=== PATIENT | male | born 1980 | race Caucasian/White ===

== ENCOUNTER 2017-06-24 22:43 | Emergency (ER) | payer SELFPAY ==
[~2017-06-24] VITALS: Ht 190.5 cm; Wt 84.4 kg
[2017-06-24] MEDS ORDERED: MULTIVITAMINS1 EAC2 ORAL (22:54)
[2017-06-24 22:59] VITALS: BP 108/68
[2017-06-24] MEDS ORDERED: Dicyclomine HCl 10mg/5ml oral soln ORAL ONE (23:30)
[2017-06-24 23:57] LABS: APPEARANCE,URINE CLEAR; KETONES,URINE NEGATIVE (NEGATIVE); NITRITE,URINE NEGATIVE (NEGATIVE); PH,URINE 6 (4.5-8.0); PROTEIN,URINE NEGATIVE (NEGATIVE); UROBILINOGEN,URINE NORMAL MG/DL (0.0-1.0)
[2017-06-24 23:59] LABS: LEUKOCYTE ESTERASE ,URINE NEGATIVE (NEGATIVE)
[2017-06-25 00:03] LABS: BASOPHILS % (AUTO) 1.3 % (0.0-2.0); EOSINOPHILS % (AUTO) 1.5 % (0.0-3.0); LYMPHOCYTES % (AUTO) 28.5 % (20.0-45.0); MEAN CORPUSCULAR HEMOGLOBIN 29.9 PG (27.0-31.0); MEAN CORPUSCULAR HGB CONC 33.9 G/DL (32.0-36.0); MEAN CORPUSCULAR VOLUME 88 FL (80-99); MEAN PLATELET VOLUME 7.2 FL (6.5-10.1); MONOCYTES % (AUTO) 6.2 % (1.0-10.0); NEUTROPHILS % (AUTO) 62.6 % (45.0-75.0); PLATELET COUNT 119 K/UL (150-450); RED BLOOD COUNT 5.13 M/UL (4.70-6.10); WHITE BLOOD COUNT 7.3 K/UL (4.8-10.8)
[2017-06-25 00:26] LABS: ALANINE AMINOTRANSFERASE 15 U/L (3-41); ALBUMIN/GLOBULIN RATIO 1.4 (1.0-2.7); ANION GAP 13 (5-15); ASPARTATE AMINO TRANSFERASE 26 U/L (5-40); CALCIUM 9.3 mg/dL (8.6-10.2); CARBON DIOXIDE 23 mEQ/L (20-30); CHLORIDE 103 mEQ/L (98-107); GLOMERULAR FILTRATION RATE > 60 mL/min (>60); HEMOLYSIS 15; LIPASE 38 U/L (< 60); POTASSIUM 3.8 mEQ/L (3.4-4.9); SODIUM 139 mEQ/L (135-145)
[2017-06-25 01:21] VITALS: BP 100/60
--- NOTE | 2017-06-25 01:34 | Emergency Room Report ---
History of Present Illness General Chief Complaint: Abdominal Pain Source: Patient Present Illness HPI The patient said one to 2 weeks of abdominal bloating with intermittent loose stools. He's had some incontinence. He has had a history of hemorrhoids in the past. It is itching around his rectum. The pain is different from constipation. Pain 7/10, constant, more pressure. Increased flatus. States has to clean rectal area multiple times. Had diarrhea which supposedly cleared up but still with "accidents". No change in weight. Appetite poor with how he feels. Denies rectal trauma. No fevers, vomiting, dysuria, chest pain, URI sy, cough, joint pain. Aside from coming to [place] from [place], no travel, unusual foods, sick contacts, recent antibiotics. 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 [place] Reviewed Nursing Documentation: PMH: Agreed, PSxH: Agreed Nursing Documentation-PMH Past Medical History: No Stated History Review of Systems All Other Systems: negative except mentioned in HPI Physical Exam Vital Signs Date Time Temp Pulse Resp B/P Pulse Ox O2 Delivery O2 Flow Rate FiO2 06/24/17 22:51 98.1 77 18 108/68 97 Room Air Sp02 EP Interpretation: reviewed, normal General Appearance: well appearing, no apparent distress, GCS 15 Head: normocephalic Eyes: bilateral eye PERRL, bilateral eye normal inspection ENT: moist mucus membranes Neck: supple Respiratory: lungs clear, normal breath sounds Cardiovascular #1: regular rate, rhythm Cardiovascular #2: 2+ radial (R) Gastrointestinal: normal inspection, normal bowel sounds, no mass, non- distended - though he feels distended, no guarding, no rebound, tenderness - diffuse, other - no LUQ tenderness Rectal: normal exam Musculoskeletal: back normal, gait/station normal, normal range of motion Neurologic: alert, oriented x3, grossly normal Skin: normal inspection, warm/dry Medical Decision Making Diagnostic Impression: Primary Impression: Abdominal pain Qualified Codes: R10.84 - Generalized abdominal pain ER Course Patient presents with bloating, discomfort and loose stools. Ddx: GItis, C dificile, hemorrhoids, IBS, polyps, proctitis amongst others. Exam not lead to diagnosis. Evaluation with labs and xray. Treatment with tylenol, pepcid and bentyl. Labs unremarkable. Xray with increased stool load. States still with discomfort (unchanged). Lomotil given. Discussed need to see GI specialist. Patient stable for outpatient observation and treatment. Laboratory Tests Test 06/24/17 23:45 White Blood Count 7.3 K/UL (4.8-10.8) Red Blood Count 5.13 M/UL (4.70-6.10) Hemoglobin 15.4 G/DL (14.2-18.0) Hematocrit 45.3 % (42.0-52.0) Mean Corpuscular Volume 88 FL (80-99) Mean Corpuscular Hemoglobin 29.9 PG (27.0-31.0) Mean Corpuscular Hemoglobin Concent 33.9 G/DL (32.0-36.0) Red Cell Distribution Width 13.0 % (11.6-14.8) Platelet Count 119 K/UL (150-450) L Mean Platelet Volume 7.2 FL (6.5-10.1) Neutrophils (%) (Auto) 62.6 % (45.0-75.0) Lymphocytes (%) (Auto) 28.5 % (20.0-45.0) Monocytes (%) (Auto) 6.2 % (1.0-10.0) Eosinophils (%) (Auto) 1.5 % (0.0-3.0) Basophils (%) (Auto) 1.3 % (0.0-2.0) Urine Color Yellow Urine Appearance Clear Urine pH 6 (4.5-8.0) Urine Specific [place] 1.015 (1.005-1.035) Urine Protein Negative (NEGATIVE) Urine Glucose (UA) Negative (NEGATIVE) Urine Ketones Negative (NEGATIVE) Urine Occult Blood Negative (NEGATIVE) Urine Nitrite Negative (NEGATIVE) Urine Bilirubin Negative (NEGATIVE) Urine Urobilinogen Normal MG/DL (0.0-1.0) Urine Leukocyte Esterase Negative (NEGATIVE) Sodium Level 139 mEQ/L (135-145) Potassium Level 3.8 mEQ/L (3.4-4.9) Chloride Level 103 mEQ/L (98-107) Carbon Dioxide Level 23 mEQ/L (20-30) Anion Gap 13 (5-15) Blood Urea Nitrogen 16 mg/dL (7-23) Creatinine 1.0 mg/dL (0.7-1.2) Estimate Glomerular Filtration Rate > 60 mL/min (>60) Glucose Level 109 mg/dL (74-106) H Calcium Level 9.3 mg/dL (8.6-10.2) Total Bilirubin 0.5 mg/dL (0.0-1.2) Aspartate Amino Transferase (AST) 26 U/L (5-40) Alanine Aminotransferase (ALT) 15 U/L (3-41) Alkaline Phosphatase 49 U/L (40-129) Total Protein 7.0 g/dL (6.6-8.7) Albumin 4.1 g/dL (3.5-5.2) Globulin 2.9 g/dL Albumin/Globulin Ratio 1.4 (1.0-2.7) Lipase 38 U/L (< 60) Other X-Ray Diagnostic Results Other X-Ray Diagnostic Results : X-Ray ordered: abd # of Views/Limited Vs Complete: 1 View Indication: Other EP Interpretation: Yes Interpretation: nonspecific bowel gas, no sbo, other - increased stool load , spleen visable Impression: Other Interpreting ER Provider: signed Chuck Arana MD Last Vital Signs Date Time Temp Pulse Resp B/P Pulse Ox O2 Delivery O2 Flow Rate FiO2 06/25/17 01:45 98.1 60 18 100/60 97 Room Air Status: improved Disposition: HOME, SELF-CARE Condition: Improved Scripts Hydrocortisone Acetate* (ANUSOL-HC*) 25 Mg Supp.rect 1 SUPP RECTAL TWICE A DAY, #12 SUPP 1 Refill Prov: Chuck Arana M.D. 06/25/17 Diphenoxylate HCl/Atropine (Lomotil Tablet) 1 Each Tablet 1 EACH PO DAILY Y for loose stools and cramps, #6 TAB 1 Refill Prov: Chuck Arana M.D. 06/25/17 Referrals: NOT CHOSEN JANAE/,REFERRING (PCP) Chuck Arana M.D. Jun 25, 2017 01:34
[2017-06-25] MEDS ORDERED: LOMOTIL TABLET1 EAC1 PO (01:37)
[2017-06-25] MEDS ORDERED: ANUSOL-HC25 MG RECTAL (01:37)
[2017-06-25 01:45] VITALS: BP 100/60
[2017-06-25] MEDS ORDERED: Lomotil 2.5mg tab ORAL ONE (01:45)
--- NOTE | 2017-06-25 11:16 | Diagnostic Imaging Report ---
Indication: Pain and abdominal distention Technique: Supine view of the abdomen Comparison: none Findings: Prominent, possibly enlarged spleen. Bowel gas pattern is unremarkable. No unusual calcifications. Impression: Possible splenomegaly No acute process otherwise Findings discussed by phone with Dr. Baker in the the emergency room at the time of interpretation
== END 2017-06-25 01:45 | disposition home or self-care (01) ==
LOC: EMR 23:09
DX: R10.9 Unspecified abdominal pain (principal); R14.0 Abdominal distension (gaseous); R19.7 Diarrhea, unspecified
CPT/HCPCS: 36415; 74000; 80053; 81003; 83690; 85025; 99284